=== PATIENT | female | born 1930 | race Caucasian/White ===

== ENCOUNTER → 2017-03-28 | Outpatient (CLI) | payer MEDICARE ==
[2017-03-28 12:46] LABS: INR 0.94; PROTHROMBIN TIME 12.7 SECONDS (12.4-14.5)
[2017-03-28 12:48] LABS: APPEARANCE, URINE CLEAR (CLEAR); BACTERIA, URINE AUTO NEGATIVE (NEGATIVE); BILIRUBIN, URINE AUTO NEGATIVE (NEGATIVE); BLOOD, URINE BLOOD NEGATIVE (NEGATIVE); COLOR, URINE YELLOW (YELLOW); GLUCOSE, URINE (UA) AUTO NEGATIVE (NEGATIVE); KETONE, URINE AUTO NEGATIVE (NEGATIVE); LEUKOCYTE ESTERASE, URINE AUTO NEGATIVE (NEGATIVE); MUCUS, URINE SMALL (NEGATIVE); NITRITE, URINE AUTO NEGATIVE (NEGATIVE); PROTEIN, URINE AUTO NEGATIVE (NEGATIVE); RBC, URINE AUTO 9 /HPF (0-3); SPECIFIC GRAVITY URINE AUTO 1.013 (1.002-1.035); SQUAMOUS EPITHELIAL CELL UR AU 0 /HPF (0-6); UROBILINOGEN, URINE AUTO 0.2 mg/dL (0.0-2.0); WBC, URINE AUTO 1 /HPF (0-3)
[2017-03-28 12:57] LABS: ALBUMIN 3.8 GM/DL (3.2-5.2); ALBUMIN/GLOBULIN RATIO 1.15 (1.00-1.93); ALKALINE PHOSPHATASE 75 U/L (45-117); ALT/SGPT 20 U/L (12-78); ANION GAP 8 MEQ/L (8-16); AST/SGOT 23 U/L (7-37); BILIRUBIN,TOTAL 0.3 MG/DL (0.2-1.0); BLOOD UREA NITROGEN 14 MG/DL (7-18); CALCIUM LEVEL 9.2 MG/DL (8.8-10.2); CARBON DIOXIDE LEVEL 31 MEQ/L (21-32); CHLORIDE LEVEL 90 MEQ/L (98-107); CREATININE FOR GFR 0.67 MG/DL (0.55-1.30); GLOMERULAR FILTRATION RATE > 60.0 (>32); GLUCOSE, FASTING 100 MG/DL (70-100); POTASSIUM SERUM 3.6 MEQ/L (3.5-5.1); SODIUM LEVEL 129 MEQ/L (136-145); TOTAL PROTEIN 7.1 GM/DL (6.4-8.2)
[2017-03-28 13:03] LABS: ERYTHROCYTE SEDIMENTATION RATE 14 mm/hr (0-42)
[2017-03-28 13:05] LABS: HEMATOCRIT 33.9 % (36.0-47.0); HEMOGLOBIN 11.1 g/dl (12.0-16.0); MEAN CORPUSCULAR HEMOGLOBIN 24.9 pg (27.0-33.0); MEAN CORPUSCULAR HGB CONC 32.7 g/dl (32.0-36.5); PLATELET COUNT, AUTOMATED 297 10^3/uL (150-450); RED BLOOD COUNT 4.46 10^6/uL (4.00-5.40); RED CELL DISTRIBUTION WIDTH 14.6 % (11.5-14.5); WHITE BLOOD COUNT 8.2 10^3/uL (4.0-10.0)
== END ==
LOC: M ADMPAT 10:30
DX: Z01.818 Encounter for other preprocedural examination (principal); M17.12 Unilateral primary osteoarthritis, left knee; Z79.899 Other long term (current) drug therapy; Z79.01 Long term (current) use of anticoagulants
CPT/HCPCS: 80053

== ENCOUNTER 2017-04-07 07:42 | Inpatient (IN) | payer MEDICARE ==
[2017-04-07] MEDS ORDERED: LIDOCAINE 1% MDV 20ML VIAL SQ (08:00)
[2017-04-07] MEDS ORDERED: MIDAZOLAM INJ 2 MG/2 ML VIAL (J2250) As Ordered ×2 (08:33→08:46)
[2017-04-07] MEDS ORDERED: fentaNYL 100 MCG/2 ML INJECTION (J3010) As Ordered ×2 (08:33→08:45)
[2017-04-07] MEDS: LR 1,000 ML IV ×3 (08:38→14:38)
[2017-04-07] MEDS ORDERED: PROPOFOL 200 MG/20 ML VIAL As Ordered (08:47)
[2017-04-07] MEDS ORDERED: LIDOCAINE 2% INJ 100 MG/5 ML SDV (FOR ANES.) As Ordered (08:47)
[2017-04-07] MEDS: MIDAZOLAM INJ 2 MG/2 ML VIAL (J2250) IV (08:55)
[2017-04-07] MEDS: fentaNYL 100 MCG/2 ML INJECTION (J3010) IV (08:55)
[2017-04-07] MEDS: FOLIC ACID 1 MG TAB PO (09:00)
[2017-04-07] MEDS: FERROUS SULFATE 325MG TAB PO (09:00)
[2017-04-07] MEDS: ceFAZolin 1GM INJ (J0690 PER 500MG) As Ordered (09:47)
[2017-04-07] MEDS: CLINDAMYCIN 600 MG in APPROPRIATE DILUENT 1 EA IV ×2 (10:12→17:04)
[2017-04-07] MEDS: CLINDAMYCIN INJ 900MG/6ML VIAL As Ordered (10:23)
[2017-04-07] MEDS: TRANEXAMIC ACID 100 MG/ML 10ML VIAL As Ordered (10:41)
[2017-04-07] MEDS: EPINEPHrine INJ 1 MG/ML 1ML AMP As Ordered (10:41)
[2017-04-07] MEDS: BUPIVACAINE LIPOSOME/PF 1.3% 20 ML VIAL (13.3MG/ML)(EXPAREL) As Ordered (11:01)
[2017-04-07] MEDS ORDERED: MORPHINE 1MG/ML IN 0.9% NACL 100ML IV BAG As Ordered ×2 (11:57→12:10)
[2017-04-07] MEDS ORDERED: diphenhydrAMINE INJ 50MG/ML VIAL (J1200) IV (12:45)
[2017-04-07] MEDS ORDERED: fentaNYL 100 MCG/2 ML INJECTION (J3010) IV (12:45)
[2017-04-07] MEDS ORDERED: ONDANSETRON 4MG/2ML VIAL (J2405) IV ×2 (12:45)
[2017-04-07] MEDS ORDERED: NALOXONE INJ 0.4 MG/1 ML VIAL (J2310) IV (12:45)
[2017-04-07] MEDS ORDERED: FLEET ENEMA PR (12:45)
[2017-04-07] MEDS ORDERED: NALBUPHINE HCL 10 MG/ML AMP (J2300) IV (12:45)
[2017-04-07] MEDS ORDERED: PERCOCET 5MG/325MG TAB PO (12:45)
[2017-04-07] MEDS ORDERED: EPIDURAL/PCA KEYS XX (12:45)
[2017-04-07] MEDS ORDERED: ACETAMINOPHEN TAB 650MG DOSE (2X325MG) PO (12:45)
[2017-04-07] MEDS ORDERED: MORPHINE 1MG/ML IN 0.9% NACL 100ML IV BAG IV (12:45)
[2017-04-07] MEDS: WARFARIN SOD 5 MG TAB PO (17:04)
[2017-04-08] MEDS: CLINDAMYCIN 600 MG in APPROPRIATE DILUENT 1 EA IV (02:35)
[2017-04-08] MEDS: LR 1,000 ML IV (02:35)
[2017-04-08] MEDS: LEVOTHYROXINE 50MCG TABLET (0.05MG) PO (05:19)
[2017-04-08 06:28] LABS: HEMOGLOBIN 8.4 g/dl (12.0-16.0); MEAN CORPUSCULAR HEMOGLOBIN 24.3 pg (27.0-33.0); MEAN CORPUSCULAR HGB CONC 32.3 g/dl (32.0-36.5); MEAN CORPUSCULAR VOLUME 75.1 fl (80.0-96.0); PLATELET COUNT, AUTOMATED 271 10^3/uL (150-450); RED BLOOD COUNT 3.46 10^6/uL (4.00-5.40); RED CELL DISTRIBUTION WIDTH 14.4 % (11.5-14.5); WHITE BLOOD COUNT 10.4 10^3/uL (4.0-10.0)
[2017-04-08 06:41] LABS: INR 1.54; PROTHROMBIN TIME 18.9 SECONDS (12.4-14.5)
[2017-04-08 06:43] LABS: ANION GAP 8 MEQ/L (8-16); BLOOD UREA NITROGEN 13 MG/DL (7-18); CALCIUM LEVEL 7.9 MG/DL (8.8-10.2); CARBON DIOXIDE LEVEL 30 MEQ/L (21-32); CHLORIDE LEVEL 93 MEQ/L (98-107); CREATININE FOR GFR 0.69 MG/DL (0.55-1.30); GLOMERULAR FILTRATION RATE > 60.0 (>32); GLUCOSE, FASTING 134 MG/DL (70-100); MAGNESIUM LEVEL 1.4 MG/DL (1.8-2.4); SODIUM LEVEL 131 MEQ/L (136-145)
[2017-04-08] MEDS ORDERED: ONDANSETRON 4 MG TAB (S0181) PO (07:00)
[2017-04-08] MEDS: MOM 30ML SUSPENSION UDC PO (08:57)
[2017-04-08] MEDS: SENOKOT S TAB PO ×2 (08:57→19:56)
[2017-04-08] MEDS: FERROUS SULFATE 325MG TAB PO (08:57)
[2017-04-08] MEDS: SERTRALINE HCL 25 MG TABLET PO (08:57)
[2017-04-08] MEDS: MIRALAX *UNIT DOSE* 17GM PACKET PO (08:57)
[2017-04-08] MEDS: PANTOPRAZOLE 40MG TAB (PROTONIX) PO (08:57)
[2017-04-08] MEDS: FOLIC ACID 1 MG TAB PO (08:57)
[2017-04-08] MEDS: PERCOCET 5MG/325MG TAB PO ×2 (08:58→17:20)
[2017-04-08] MEDS ORDERED: WARFARIN SOD 5 MG TAB PO (17:00)
[2017-04-08] MEDS: WARFARIN SOD 2.5 MG TAB PO (17:19)
[2017-04-09] MEDS: PERCOCET 5MG/325MG TAB PO ×5 (00:55→20:48)
[2017-04-09] MEDS: LEVOTHYROXINE 50MCG TABLET (0.05MG) PO (05:50)
[2017-04-09 06:29] LABS: HEMOGLOBIN 8.2 g/dl (12.0-16.0); MEAN CORPUSCULAR HEMOGLOBIN 24.9 pg (27.0-33.0); MEAN CORPUSCULAR HGB CONC 32.8 g/dl (32.0-36.5); PLATELET COUNT, AUTOMATED 247 10^3/uL (150-450); RED BLOOD COUNT 3.29 10^6/uL (4.00-5.40); RED CELL DISTRIBUTION WIDTH 14.6 % (11.5-14.5); WHITE BLOOD COUNT 9.5 10^3/uL (4.0-10.0)
[2017-04-09 06:36] LABS: INR 2.13; PROTHROMBIN TIME 24.6 SECONDS (12.4-14.5)
[2017-04-09 06:50] LABS: ANION GAP 6 MEQ/L (8-16); BLOOD UREA NITROGEN 13 MG/DL (7-18); CALCIUM LEVEL 7.9 MG/DL (8.8-10.2); CARBON DIOXIDE LEVEL 31 MEQ/L (21-32); CHLORIDE LEVEL 93 MEQ/L (98-107); CREATININE FOR GFR 0.53 MG/DL (0.55-1.30); GLOMERULAR FILTRATION RATE > 60.0 (>32); GLUCOSE, FASTING 111 MG/DL (70-100); MAGNESIUM LEVEL 1.6 MG/DL (1.8-2.4); POTASSIUM SERUM 3.2 MEQ/L (3.5-5.1); SODIUM LEVEL 130 MEQ/L (136-145)
[2017-04-09] MEDS: FERROUS SULFATE 325MG TAB PO (08:19)
[2017-04-09] MEDS: SENOKOT S TAB PO ×2 (08:19→20:48)
[2017-04-09] MEDS: SERTRALINE HCL 25 MG TABLET PO (08:19)
[2017-04-09] MEDS: MIRALAX *UNIT DOSE* 17GM PACKET PO (08:19)
[2017-04-09] MEDS: MOM 30ML SUSPENSION UDC PO (08:19)
[2017-04-09] MEDS: PANTOPRAZOLE 40MG TAB (PROTONIX) PO (08:19)
[2017-04-09] MEDS: FOLIC ACID 1 MG TAB PO (08:19)
[2017-04-09] MEDS: MORPHINE 4 MG/ML 1ML VIAL (J2270) IV (08:20)
[2017-04-10] MEDS: PERCOCET 5MG/325MG TAB PO ×2 (00:47→12:10)
[2017-04-10] MEDS: LEVOTHYROXINE 50MCG TABLET (0.05MG) PO (05:45)
[2017-04-10 06:55] LABS: INR 2.25; PROTHROMBIN TIME 25.7 SECONDS (12.4-14.5)
[2017-04-10 06:56] LABS: ANION GAP 6 MEQ/L (8-16); BLOOD UREA NITROGEN 9 MG/DL (7-18); CALCIUM LEVEL 7.8 MG/DL (8.8-10.2); CARBON DIOXIDE LEVEL 32 MEQ/L (21-32); CHLORIDE LEVEL 93 MEQ/L (98-107); CREATININE FOR GFR 0.54 MG/DL (0.55-1.30); GLOMERULAR FILTRATION RATE > 60.0 (>32); GLUCOSE, FASTING 109 MG/DL (70-100); MAGNESIUM LEVEL 1.8 MG/DL (1.8-2.4); POTASSIUM SERUM 3.2 MEQ/L (3.5-5.1); SODIUM LEVEL 131 MEQ/L (136-145)
[2017-04-10] MEDS: MOM 30ML SUSPENSION UDC PO (09:43)
[2017-04-10] MEDS: MIRALAX *UNIT DOSE* 17GM PACKET PO (09:43)
[2017-04-10] MEDS: SERTRALINE HCL 25 MG TABLET PO (09:43)
[2017-04-10] MEDS: PANTOPRAZOLE 40MG TAB (PROTONIX) PO (09:44)
[2017-04-10] MEDS: FERROUS SULFATE 325MG TAB PO (09:44)
[2017-04-10] MEDS: FOLIC ACID 1 MG TAB PO (09:44)
[2017-04-10] MEDS: SENOKOT S TAB PO (09:44)
[2017-04-10] MEDS: POTASSIUM CHLORIDE 10 MEQ SR TABLET PO (13:32)
== END 2017-04-10 13:40 | DRG 470 ==
LOC: M OR 07:42 → M MS5PR 13:15
PROC: 0SRD0J9 Replacement of Left Knee Joint with Synthetic Substitute, Cemented, Open Approach (ICD-10-PCS; principal; 2017-04-07 09:30)
DX: M17.12 Unilateral primary osteoarthritis, left knee (principal); E72.11 Homocystinuria; Z79.899 Other long term (current) drug therapy; Z88.0 Allergy status to penicillin; Z88.8 Allergy status to other drugs, medicaments and biological substances; K21.9 Gastro-esophageal reflux disease without esophagitis; E03.9 Hypothyroidism, unspecified; I10 Essential (primary) hypertension; D50.9 Iron deficiency anemia, unspecified; M48.061 Spinal stenosis, lumbar region without neurogenic claudication

== ENCOUNTER 2017-04-10 13:54 | Inpatient (IN) | payer MEDICARE ==
[~2017-04-10 13:54] MED LIST: BISACODYL 10 MG SUPP PR; BISACODYL 5 MG TAB PO; FLEET ENEMA PR; LACTULOSE 20 GM/30 ML SYRUP UD PO; MOM 30ML SUSPENSION UDC PO; ONDANSETRON 4 MG TAB (S0181) PO; ONDANSETRON 4MG/2ML VIAL (J2405) IM; diphenhydrAMINE 25 MG CAP PO
[2017-04-10] MEDS: SENNA 8.6 MG TAB (SENOKOT) PO (20:31)
[2017-04-10] MEDS: DOCUSATE SODIUM 100 MG CAP PO (20:31)
[2017-04-10] MEDS: ACETAMINOPHEN TAB 650MG DOSE (2X325MG) PO (20:31)
[2017-04-10] MEDS: PERCOCET 5MG/325MG TAB PO (22:17)
[2017-04-11] MEDS: LEVOTHYROXINE 50MCG TABLET (0.05MG) PO (05:35)
[2017-04-11 06:53] LABS: BASO # 0.1 10^3/uL (0.0-0.2); BASO % 0.7 % (0.0-1.0); EOS # 0.2 10^3/uL (0.0-0.50); EOS % 2.5 % (0.0-3.0); HEMATOCRIT 23.6 % (36.0-47.0); HEMOGLOBIN 7.7 g/dl (12.0-16.0); IMMATURE GRANULOCYTE % 0.4 % (0-3.0); LYMPH # 1.4 10^3/uL (1.5-4.5); LYMPH % 20.7 % (24.0-44.0); MEAN CORPUSCULAR HEMOGLOBIN 25.2 pg (27.0-33.0); MEAN CORPUSCULAR HGB CONC 32.6 g/dl (32.0-36.5); MEAN CORPUSCULAR VOLUME 77.1 fl (80.0-96.0); MONO # 0.9 10^3/uL (0.0-0.8); MONO % 12.5 % (0.0-5.0); NEUTROPHILS # 4.4 10^3/uL (1.8-7.7); NEUTROPHILS % 63.2 % (36.0-66.0); PLATELET COUNT, AUTOMATED 238 10^3/uL (150-450); RED BLOOD COUNT 3.06 10^6/uL (4.00-5.40); RED CELL DISTRIBUTION WIDTH 14.4 % (11.5-14.5); WHITE BLOOD COUNT 6.9 10^3/uL (4.0-10.0)
[2017-04-11 06:59] LABS: INR 1.94; PROTHROMBIN TIME 22.8 SECONDS (12.4-14.5)
[2017-04-11 07:16] LABS: ALBUMIN 2.5 GM/DL (3.2-5.2); ALBUMIN/GLOBULIN RATIO 0.78 (1.00-1.93); ALKALINE PHOSPHATASE 67 U/L (45-117); ALT/SGPT 20 U/L (12-78); ANION GAP 6 MEQ/L (8-16); AST/SGOT 21 U/L (7-37); BILIRUBIN,TOTAL 0.8 MG/DL (0.2-1.0); BLOOD UREA NITROGEN 9 MG/DL (7-18); CALCIUM LEVEL 8.1 MG/DL (8.8-10.2); CARBON DIOXIDE LEVEL 33 MEQ/L (21-32); CHLORIDE LEVEL 94 MEQ/L (98-107); CREATININE FOR GFR 0.51 MG/DL (0.55-1.30); GLOMERULAR FILTRATION RATE > 60.0 (>32); GLUCOSE, FASTING 97 MG/DL (70-100); POTASSIUM SERUM 3.5 MEQ/L (3.5-5.1); SODIUM LEVEL 133 MEQ/L (136-145); TOTAL PROTEIN 5.7 GM/DL (6.4-8.2)
[2017-04-11] MEDS: DOCUSATE SODIUM 100 MG CAP PO ×2 (08:45→21:00)
[2017-04-11] MEDS: MIRALAX *UNIT DOSE* 17GM PACKET PO (08:46)
[2017-04-11] MEDS: SERTRALINE HCL 25 MG TABLET PO (08:46)
[2017-04-11] MEDS: FERROUS GLUCONATE 324 MG TAB PO (08:46)
[2017-04-11] MEDS: PANTOPRAZOLE 40MG TAB (PROTONIX) PO (08:46)
[2017-04-11] MEDS: FOLIC ACID 1 MG TAB PO (08:46)
[2017-04-11] MEDS: NS 1,000 ML IV (09:32)
[2017-04-11] MEDS: PERCOCET 5MG/325MG TAB PO (09:42)
[2017-04-11 12:17] LABS: KETONE, URINE AUTO RFX NEGATIVE (NEGATIVE); LEUKOCYTE ESTERASE UR AUTO RFX NEGATIVE (NEGATIVE); MUCUS, URINE RFX SMALL (NEGATIVE); NITRITE, URINE AUTO RFX NEGATIVE (NEGATIVE); RBC, URINE AUTO RFX 6 /HPF (0-3); SPECIFIC GRAVITY UR AUTO RFX 1.006 (1.002-1.035); SQUAM EPITHELIAL CELL UR AURFX 0 /HPF (0-6); WBC, URINE AUTO RFX 2 /HPF (0-3)
[2017-04-11 14:49] LABS: IMMEDIATE SPIN CROSSMATCH 1 1
[2017-04-11] MEDS: WARFARIN SOD 2.5 MG TAB PO (17:58)
[2017-04-11] MEDS: SENNA 8.6 MG TAB (SENOKOT) PO (21:00)
[2017-04-11] MEDS: diphenhydrAMINE 25 MG CAP PO (21:58)
[2017-04-12] MEDS: PERCOCET 5MG/325MG TAB PO ×2 (02:08→08:50)
[2017-04-12] MEDS: LEVOTHYROXINE 50MCG TABLET (0.05MG) PO (06:09)
[2017-04-12 06:46] LABS: BASO # 0.1 10^3/uL (0.0-0.2); BASO % 0.8 % (0.0-1.0); EOS # 0.2 10^3/uL (0.0-0.50); EOS % 3.4 % (0.0-3.0); IMMATURE GRANULOCYTE % 0.8 % (0-3.0); LYMPH # 1.6 10^3/uL (1.5-4.5); LYMPH % 22.1 % (24.0-44.0); MEAN CORPUSCULAR HEMOGLOBIN 25.8 pg (27.0-33.0); MEAN CORPUSCULAR HGB CONC 32.7 g/dl (32.0-36.5); MEAN CORPUSCULAR VOLUME 78.9 fl (80.0-96.0); MONO # 0.9 10^3/uL (0.0-0.8); MONO % 12.4 % (0.0-5.0); NEUTROPHILS # 4.3 10^3/uL (1.8-7.7); NEUTROPHILS % 60.5 % (36.0-66.0); PLATELET COUNT, AUTOMATED 280 10^3/uL (150-450); RED CELL DISTRIBUTION WIDTH 14.8 % (11.5-14.5); WHITE BLOOD COUNT 7.2 10^3/uL (4.0-10.0)
[2017-04-12 06:47] LABS: HEMOGLOBIN 9.8 g/dl (12.0-16.0); INR 1.82; PROTHROMBIN TIME 21.6 SECONDS (12.4-14.5)
[2017-04-12 06:55] LABS: ANION GAP 7 MEQ/L (8-16); BLOOD UREA NITROGEN 9 MG/DL (7-18); CALCIUM LEVEL 8.5 MG/DL (8.8-10.2); CARBON DIOXIDE LEVEL 32 MEQ/L (21-32); CHLORIDE LEVEL 94 MEQ/L (98-107); CREATININE FOR GFR 0.56 MG/DL (0.55-1.30); GLOMERULAR FILTRATION RATE > 60.0 (>32); GLUCOSE, FASTING 95 MG/DL (70-100); POTASSIUM SERUM 3.2 MEQ/L (3.5-5.1); SODIUM LEVEL 133 MEQ/L (136-145)
[2017-04-12] MEDS: FERROUS GLUCONATE 324 MG TAB PO (08:51)
[2017-04-12] MEDS: PANTOPRAZOLE 40MG TAB (PROTONIX) PO (08:52)
[2017-04-12] MEDS: FOLIC ACID 1 MG TAB PO (08:52)
[2017-04-12] MEDS: MIRALAX *UNIT DOSE* 17GM PACKET PO (08:53)
[2017-04-12] MEDS: DOCUSATE SODIUM 100 MG CAP PO ×2 (08:54→21:00)
[2017-04-12] MEDS: NS 1,000 ML IV (08:54)
[2017-04-12] MEDS: SERTRALINE HCL 25 MG TABLET PO ×2 (09:21→21:53)
[2017-04-12] MEDS: SIMETHICONE 80 MG CHEW TAB PO (10:42)
[2017-04-12] MEDS: CALCIUM/VITAMIN D 500 MG TAB PO ×2 (10:42→21:53)
[2017-04-12] MEDS: WARFARIN SOD 4 MG TAB PO (17:24)
[2017-04-12] MEDS: SENNA 8.6 MG TAB (SENOKOT) PO (21:00)
[2017-04-12] MEDS: ACETAMINOPHEN TAB 650MG DOSE (2X325MG) PO (21:55)
[2017-04-13] MEDS: LEVOTHYROXINE 50MCG TABLET (0.05MG) PO (05:34)
[2017-04-13 06:49] LABS: INR 2.17
[2017-04-13] MEDS: DOCUSATE SODIUM 100 MG CAP PO ×3 (09:00→21:00)
[2017-04-13] MEDS: CALCIUM/VITAMIN D 500 MG TAB PO ×2 (09:12→21:53)
[2017-04-13] MEDS: PANTOPRAZOLE 40MG TAB (PROTONIX) PO (09:12)
[2017-04-13] MEDS: FOLIC ACID 1 MG TAB PO (09:12)
[2017-04-13] MEDS: FERROUS GLUCONATE 324 MG TAB PO (09:12)
[2017-04-13] MEDS: PERCOCET 5MG/325MG TAB PO (09:21)
[2017-04-13] MEDS: NS 1,000 ML IV (09:22)
[2017-04-13] MEDS: SENNA 8.6 MG TAB (SENOKOT) PO (21:00)
[2017-04-13] MEDS: SERTRALINE HCL 25 MG TABLET PO (21:53)
[2017-04-13] MEDS: ACETAMINOPHEN TAB 650MG DOSE (2X325MG) PO (21:54)
[2017-04-14] MEDS: LEVOTHYROXINE 50MCG TABLET (0.05MG) PO (05:49)
[2017-04-14 07:47] LABS: INR 2.27; PROTHROMBIN TIME 25.9 SECONDS (12.4-14.5)
[2017-04-14] MEDS: FERROUS GLUCONATE 324 MG TAB PO (08:10)
[2017-04-14] MEDS: PANTOPRAZOLE 40MG TAB (PROTONIX) PO (08:10)
[2017-04-14] MEDS: FOLIC ACID 1 MG TAB PO (08:10)
[2017-04-14] MEDS: CALCIUM/VITAMIN D 500 MG TAB PO ×2 (08:10→21:41)
[2017-04-14] MEDS: DOCUSATE SODIUM 100 MG CAP PO ×2 (08:11→21:41)
[2017-04-14] MEDS: PERCOCET 5MG/325MG TAB PO ×3 (09:21→21:43)
[2017-04-14] MEDS: SENNA 8.6 MG TAB (SENOKOT) PO (21:41)
[2017-04-14] MEDS: SERTRALINE HCL 25 MG TABLET PO (21:41)
[2017-04-15] MEDS: LEVOTHYROXINE 50MCG TABLET (0.05MG) PO (05:17)
[2017-04-15 06:23] LABS: INR 2.19; PROTHROMBIN TIME 25.1 SECONDS (12.4-14.5)
[2017-04-15] MEDS: FERROUS GLUCONATE 324 MG TAB PO (09:14)
[2017-04-15] MEDS: PANTOPRAZOLE 40MG TAB (PROTONIX) PO (09:14)
[2017-04-15] MEDS: ACETAMINOPHEN TAB 650MG DOSE (2X325MG) PO ×2 (09:14→21:09)
[2017-04-15] MEDS: CALCIUM/VITAMIN D 500 MG TAB PO ×2 (09:14→21:08)
[2017-04-15] MEDS: FOLIC ACID 1 MG TAB PO (09:14)
[2017-04-15] MEDS: DOCUSATE SODIUM 100 MG CAP PO ×2 (09:14→21:08)
[2017-04-15] MEDS: PERCOCET 5MG/325MG TAB PO (14:26)
[2017-04-15] MEDS: SERTRALINE HCL 25 MG TABLET PO (21:08)
[2017-04-15] MEDS: SENNA 8.6 MG TAB (SENOKOT) PO (21:08)
[2017-04-16] MEDS: LEVOTHYROXINE 50MCG TABLET (0.05MG) PO (06:21)
[2017-04-16 06:32] LABS: INR 2.26; PROTHROMBIN TIME 25.8 SECONDS (12.4-14.5)
[2017-04-16] MEDS: FERROUS GLUCONATE 324 MG TAB PO (08:54)
[2017-04-16] MEDS: CALCIUM/VITAMIN D 500 MG TAB PO ×2 (08:54→21:51)
[2017-04-16] MEDS: DOCUSATE SODIUM 100 MG CAP PO ×2 (08:54→21:00)
[2017-04-16] MEDS: PANTOPRAZOLE 40MG TAB (PROTONIX) PO (08:54)
[2017-04-16] MEDS: FOLIC ACID 1 MG TAB PO (08:54)
[2017-04-16] MEDS: ACETAMINOPHEN TAB 650MG DOSE (2X325MG) PO (10:51)
[2017-04-16] MEDS: PERCOCET 5MG/325MG TAB PO ×2 (16:13→21:52)
[2017-04-16] MEDS: SENNA 8.6 MG TAB (SENOKOT) PO (21:00)
[2017-04-16] MEDS: SERTRALINE HCL 25 MG TABLET PO (21:51)
[2017-04-17] MEDS: LEVOTHYROXINE 50MCG TABLET (0.05MG) PO (06:21)
[2017-04-17 07:02] LABS: BASO # 0.1 10^3/uL (0.0-0.2); EOS # 0.2 10^3/uL (0.0-0.50); EOS % 2.8 % (0.0-3.0); HEMATOCRIT 27.8 % (36.0-47.0); IMMATURE GRANULOCYTE % 0.9 % (0-3.0); LYMPH # 1.4 10^3/uL (1.5-4.5); MEAN CORPUSCULAR HEMOGLOBIN 25.8 pg (27.0-33.0); MEAN CORPUSCULAR HGB CONC 32.4 g/dl (32.0-36.5); MEAN CORPUSCULAR VOLUME 79.7 fl (80.0-96.0); MONO % 14.5 % (0.0-5.0); NEUTROPHILS # 4.2 10^3/uL (1.8-7.7); NEUTROPHILS % 60.8 % (36.0-66.0); PLATELET COUNT, AUTOMATED 309 10^3/uL (150-450); RED BLOOD COUNT 3.49 10^6/uL (4.00-5.40); RED CELL DISTRIBUTION WIDTH 15.3 % (11.5-14.5); WHITE BLOOD COUNT 6.9 10^3/uL (4.0-10.0)
[2017-04-17 07:15] LABS: INR 1.98; PROTHROMBIN TIME 23.1 SECONDS (12.4-14.5)
[2017-04-17 07:17] LABS: ANION GAP 7 MEQ/L (8-16); BLOOD UREA NITROGEN 6 MG/DL (7-18); CALCIUM LEVEL 8.4 MG/DL (8.8-10.2); CARBON DIOXIDE LEVEL 31 MEQ/L (21-32); CHLORIDE LEVEL 100 MEQ/L (98-107); CREATININE FOR GFR 0.46 MG/DL (0.55-1.30); GLOMERULAR FILTRATION RATE > 60.0 (>32); GLUCOSE, FASTING 94 MG/DL (70-100); POTASSIUM SERUM 3.1 MEQ/L (3.5-5.1); SODIUM LEVEL 138 MEQ/L (136-145)
[2017-04-17] MEDS: FERROUS GLUCONATE 324 MG TAB PO (08:34)
[2017-04-17] MEDS: PANTOPRAZOLE 40MG TAB (PROTONIX) PO (08:34)
[2017-04-17] MEDS: FOLIC ACID 1 MG TAB PO (08:34)
[2017-04-17] MEDS: DOCUSATE SODIUM 100 MG CAP PO (08:34)
[2017-04-17] MEDS: CALCIUM/VITAMIN D 500 MG TAB PO (08:34)
[2017-04-17] MEDS: ACETAMINOPHEN TAB 650MG DOSE (2X325MG) PO (10:39)
== END 2017-04-17 14:05 | disposition home health service (06) | DRG 560 ==
LOC: M PM&R 04-14 13:59
DX: Z47.1 Aftercare following joint replacement surgery (principal); D62 Acute posthemorrhagic anemia; Z96.652 Presence of left artificial knee joint; K59.00 Constipation, unspecified; M19.90 Unspecified osteoarthritis, unspecified site; K21.9 Gastro-esophageal reflux disease without esophagitis; I10 Essential (primary) hypertension; Z79.899 Other long term (current) drug therapy; Z88.0 Allergy status to penicillin; Z88.8 Allergy status to other drugs, medicaments and biological substances; F32.9 Major depressive disorder, single episode, unspecified; E03.9 Hypothyroidism, unspecified; R50.9 Fever, unspecified

== ENCOUNTER → 2017-04-20 | Outpatient (REF) | payer MEDICARE ==
[2017-04-20 13:12] LABS: INR 1.83; PROTHROMBIN TIME 21.7 SECONDS (12.4-14.5)
== END ==
LOC: M LABDRAW1 11:50
DX: Z79.01 Long term (current) use of anticoagulants (principal)
CPT/HCPCS: 85610

== ENCOUNTER → 2017-09-07 | Outpatient (CLI) | payer MEDICARE ==
[2017-09-07 11:24] LABS: HEMATOCRIT 31.3 % (36.0-47.0); HEMOGLOBIN 9.9 g/dl (12.0-15.5); MEAN CORPUSCULAR HEMOGLOBIN 23.2 pg (27.0-33.0); MEAN CORPUSCULAR HGB CONC 31.6 g/dl (32.0-36.5); MEAN CORPUSCULAR VOLUME 73.3 fl (80.0-96.0); PLATELET COUNT, AUTOMATED 274 10^3/uL (150-450); RED BLOOD COUNT 4.27 10^6/uL (4.00-5.40); RED CELL DISTRIBUTION WIDTH 14.1 % (11.5-14.5); WHITE BLOOD COUNT 6.4 10^3/uL (4.0-10.0)
[2017-09-07 11:35] LABS: INR 0.99; PROTHROMBIN TIME 13.2 SECONDS (12.1-14.4)
[2017-09-07 11:48] LABS: ALBUMIN 3.4 GM/DL (3.2-5.2); ALKALINE PHOSPHATASE 81 U/L (45-117); ALT/SGPT 21 U/L (12-78); ANION GAP 8 MEQ/L (8-16); AST/SGOT 25 U/L (7-37); BILIRUBIN,TOTAL 0.4 MG/DL (0.2-1.0); BLOOD UREA NITROGEN 13 MG/DL (7-18); CALCIUM LEVEL 8.9 MG/DL (8.8-10.2); CARBON DIOXIDE LEVEL 32 MEQ/L (21-32); CHLORIDE LEVEL 92 MEQ/L (98-107); GLOMERULAR FILTRATION RATE > 60.0 (>32); GLUCOSE, FASTING 88 MG/DL (70-100); POTASSIUM SERUM 3.3 MEQ/L (3.5-5.1); SODIUM LEVEL 132 MEQ/L (136-145); TOTAL PROTEIN 6.8 GM/DL (6.4-8.2)
[2017-09-07 11:49] LABS: ERYTHROCYTE SEDIMENTATION RATE 24 mm/hr (0-42)
== END ==
LOC: M ADMPAT 09:39
DX: Z01.818 Encounter for other preprocedural examination (principal); K21.9 Gastro-esophageal reflux disease without esophagitis; M17.11 Unilateral primary osteoarthritis, right knee; E07.9 Disorder of thyroid, unspecified
CPT/HCPCS: 71046

== ENCOUNTER 2017-09-27 09:24 | Inpatient (IN) | payer MEDICARE ==
[2017-09-25] MEDS: TRANEXAMIC ACID 100 MG/ML 10ML VIAL As Ordered (08:10)
[2017-09-25] MEDS: EPINEPHrine INJ 1 MG/ML 1ML AMP As Ordered (08:11)
[2017-09-25] MEDS: BUPIVACAINE LIPOSOME/PF 1.3% 20 ML VIAL (13.3MG/ML)(EXPAREL) As Ordered (08:12)
[2017-09-27] MEDS ORDERED: LR 1,000 ML IV (09:45)
[2017-09-27] MEDS: CLINDAMYCIN INJ 900MG/6ML VIAL As Ordered ×2 (10:06→12:44)
[2017-09-27] MEDS ORDERED: fentaNYL 100 MCG/2 ML INJECTION (J3010) As Ordered ×2 (11:02→12:29)
[2017-09-27] MEDS ORDERED: MIDAZOLAM INJ 2 MG/2 ML VIAL (J2250) As Ordered ×2 (11:02→12:29)
[2017-09-27] MEDS: MIDAZOLAM INJ 2 MG/2 ML VIAL (J2250) IV (11:24)
[2017-09-27] MEDS: fentaNYL 100 MCG/2 ML INJECTION (J3010) IV (11:25)
[2017-09-27] MEDS: CLINDAMYCIN 900 MG in APPROPRIATE DILUENT 1 EA IV ×2 (12:11→20:20)
[2017-09-27] MEDS ORDERED: PROPOFOL 200 MG/20 ML VIAL As Ordered (12:29)
[2017-09-27] MEDS ORDERED: LIDOCAINE 2% INJ 100 MG/5 ML SDV (FOR ANES.) As Ordered (12:29)
[2017-09-27] MEDS ORDERED: ePHEDrine SULFATE 25 MG/5 ML(5MG/ML) SYRINGE As Ordered (12:56)
[2017-09-27] MEDS ORDERED: LIDOCAINE 1% MDV 20ML VIAL (12:57)
[2017-09-27] MEDS ORDERED: ROPIvacaine 0.5% 30 ML INJECTION (J2795 PER 1MG) (12:57)
[2017-09-27] MEDS ORDERED: EPINEPHrine INJ 1 MG/ML 1ML AMP (12:57)
[2017-09-27] MEDS: TRANEXAMIC ACID 100 MG/ML 10ML VIAL As Ordered (13:19)
[2017-09-27] MEDS: EPINEPHrine INJ 1 MG/ML 1ML AMP As Ordered (13:19)
[2017-09-27] MEDS: BUPIVACAINE LIPOSOME/PF 1.3% 20 ML VIAL (13.3MG/ML)(EXPAREL) As Ordered (13:20)
[2017-09-27] MEDS ORDERED: MORPHINE 1MG/ML IN 0.9% NACL 100ML IV BAG As Ordered (13:30)
[2017-09-27] MEDS ORDERED: PERCOCET 5MG/325MG TAB PO (14:00)
[2017-09-27] MEDS ORDERED: fentaNYL 100 MCG/2 ML INJECTION (J3010) IV (14:00)
[2017-09-27] MEDS ORDERED: FLEET ENEMA PR (14:00)
[2017-09-27] MEDS ORDERED: ACETAMINOPHEN TAB 650MG DOSE (2X325MG) PO (14:00)
[2017-09-27] MEDS ORDERED: diphenhydrAMINE INJ 50MG/ML VIAL (J1200) IV (14:00)
[2017-09-27] MEDS ORDERED: ONDANSETRON 4MG/2ML VIAL (J2405) IV ×2 (14:00)
[2017-09-27] MEDS ORDERED: NALBUPHINE HCL 10 MG/ML AMP (J2300) IV (14:00)
[2017-09-27] MEDS ORDERED: NALOXONE INJ 0.4 MG/1 ML VIAL (J2310) IV (14:00)
[2017-09-27] MEDS ORDERED: METOCLOPRAMIDE INJ 10MG/2ML VIAL (J2765) IV (14:00)
[2017-09-27] MEDS ORDERED: EPIDURAL/PCA KEYS XX (14:00)
[2017-09-27] MEDS: ONDANSETRON 4MG/2ML VIAL (J2405) IV (14:27)
[2017-09-27] MEDS: MORPHINE 1MG/ML IN 0.9% NACL 100ML IV BAG IV (15:11)
[2017-09-27] MEDS: LR 1,000 ML IV ×2 (15:47)
[2017-09-27] MEDS ORDERED: DOCUSATE SODIUM 100 MG CAP PO (16:30)
[2017-09-27] MEDS: FERROUS SULFATE 325MG TAB PO (16:49)
[2017-09-27] MEDS: LORATADINE 10 MG TAB PO (16:49)
[2017-09-27] MEDS: POTASSIUM CHLORIDE 10 MEQ SR TABLET PO (16:50)
[2017-09-27] MEDS: SERTRALINE HCL 25 MG TABLET PO (16:50)
[2017-09-27] MEDS: FOLIC ACID 1 MG TAB PO (16:50)
[2017-09-28] MEDS: LR 1,000 ML IV (03:40)
[2017-09-28] MEDS: CLINDAMYCIN 900 MG in APPROPRIATE DILUENT 1 EA IV (03:40)
[2017-09-28] MEDS: LEVOTHYROXINE 50MCG TABLET (0.05MG) PO (05:18)
[2017-09-28] MEDS ORDERED: ONDANSETRON 4 MG TAB (S0181) PO (06:30)
[2017-09-28] MEDS ORDERED: PERCOCET 5MG/325MG TAB PO (06:30)
[2017-09-28 07:29] LABS: HEMATOCRIT 27.7 % (36.0-47.0); HEMOGLOBIN 8.6 g/dl (12.0-15.5); MEAN CORPUSCULAR HEMOGLOBIN 23.4 pg (27.0-33.0); MEAN CORPUSCULAR VOLUME 75.3 fl (80.0-96.0); PLATELET COUNT, AUTOMATED 220 10^3/uL (150-450); RED BLOOD COUNT 3.68 10^6/uL (4.00-5.40); RED CELL DISTRIBUTION WIDTH 14.7 % (11.5-14.5); WHITE BLOOD COUNT 8.5 10^3/uL (4.0-10.0)
[2017-09-28 07:50] LABS: ALBUMIN/GLOBULIN RATIO 0.83 (1.00-1.93); ALKALINE PHOSPHATASE 60 U/L (45-117); ALT/SGPT 18 U/L (12-78); ANION GAP 8 MEQ/L (8-16); AST/SGOT 20 U/L (7-37); BILIRUBIN,TOTAL 0.6 MG/DL (0.2-1.0); BLOOD UREA NITROGEN 15 MG/DL (7-18); CARBON DIOXIDE LEVEL 31 MEQ/L (21-32); CHLORIDE LEVEL 96 MEQ/L (98-107); CREATININE FOR GFR 0.82 MG/DL (0.55-1.30); FERRITIN 44 NG/ML (8-252); GLOMERULAR FILTRATION RATE > 60.0 (>32); GLUCOSE, FASTING 118 MG/DL (70-100); IRON (FE) 15 UG/DL (50-170); PERCENT SATURATION 5.3 % (13.2-45.0); POTASSIUM SERUM 3.2 MEQ/L (3.5-5.1); SODIUM LEVEL 135 MEQ/L (136-145); TOTAL IRON BINDING CAPACITY 282 UG/DL (250-450); TOTAL PROTEIN 6.6 GM/DL (6.4-8.2)
[2017-09-28] MEDS: FOLIC ACID 1 MG TAB PO (10:06)
[2017-09-28] MEDS: POTASSIUM CHLORIDE 10 MEQ SR TABLET PO ×2 (10:06→12:56)
[2017-09-28] MEDS: MIRALAX *UNIT DOSE* 17GM PACKET PO (10:06)
[2017-09-28] MEDS: DOCUSATE SODIUM 100 MG CAP PO (10:06)
[2017-09-28] MEDS: SENOKOT S TAB PO (10:06)
[2017-09-28] MEDS: MOM 30ML SUSPENSION UDC PO (10:06)
[2017-09-28] MEDS: FERROUS SULFATE 325MG TAB PO (10:06)
[2017-09-28] MEDS: LORATADINE 10 MG TAB PO (10:07)
[2017-09-28] MEDS: PANTOPRAZOLE 40MG TAB (PROTONIX) PO (10:07)
[2017-09-28] MEDS: SERTRALINE HCL 25 MG TABLET PO (10:07)
[2017-09-28] MEDS: RIVAROXABAN 10 MG TAB (XARELTO) PO (10:07)
[2017-09-28] MEDS: PERCOCET 5MG/325MG TAB PO (10:11)
[2017-09-28 11:50] LABS: FOLATE > 24.0 NG/ML (>5.4); VITAMIN B12 LEVEL 499 PG/ML (247-911)
== END 2017-09-28 13:30 | DRG 470 ==
LOC: M OR 09:24 → M MS5PR 15:00
PROC: 0SRC0J9 Replacement of Right Knee Joint with Synthetic Substitute, Cemented, Open Approach (ICD-10-PCS; principal; 2017-09-27 12:00)
DX: M17.11 Unilateral primary osteoarthritis, right knee (principal); L10.0 Pemphigus vulgaris; E72.11 Homocystinuria; I73.9 Peripheral vascular disease, unspecified; D50.9 Iron deficiency anemia, unspecified; K21.9 Gastro-esophageal reflux disease without esophagitis; E87.6 Hypokalemia; J30.9 Allergic rhinitis, unspecified; M48.061 Spinal stenosis, lumbar region without neurogenic claudication; E03.9 Hypothyroidism, unspecified; I10 Essential (primary) hypertension; M81.0 Age-related osteoporosis without current pathological fracture; Z88.0 Allergy status to penicillin; Z88.1 Allergy status to other antibiotic agents; Z88.5 Allergy status to narcotic agent; Z88.8 Allergy status to other drugs, medicaments and biological substances; Z79.899 Other long term (current) drug therapy; Z98.41 Cataract extraction status, right eye; Z98.42 Cataract extraction status, left eye; Z90.710 Acquired absence of both cervix and uterus; Z90.722 Acquired absence of ovaries, bilateral

== ENCOUNTER 2017-09-28 13:35 | Inpatient (IN) | payer MEDICARE ==
[~2017-09-28 13:35] MED LIST changes: -LACTULOSE 20 GM/30 ML SYRUP UD PO; +MAALOX 30 ML SUSP *UDC PO; -MOM 30ML SUSPENSION UDC PO; +NORCO, ANEXSIA 5/325MG TABLET (HYDROcodone/ACETAMINOPHEN) PO; +ONDANSETRON 4 MG ORAL DISINTEGRATING TAB (Q0162 PER 1MG) PO; -ONDANSETRON 4 MG TAB (S0181) PO; +PERCOCET 5MG/325MG TAB PO; +SIMETHICONE 80 MG CHEW TAB PO; -diphenhydrAMINE 25 MG CAP PO
[2017-09-28] MEDS: PERCOCET 5MG/325MG TAB PO ×2 (14:30→20:03)
[2017-09-28] MEDS: SENNA 8.6 MG TAB (SENOKOT) PO (20:02)
[2017-09-28] MEDS: DOCUSATE SODIUM 100 MG CAP PO (20:02)
[2017-09-29] MEDS: PERCOCET 5MG/325MG TAB PO ×4 (00:10→20:27)
[2017-09-29] MEDS: LEVOTHYROXINE 50MCG TABLET (0.05MG) PO (05:59)
[2017-09-29 08:02] LABS: BASO % 0.4 % (0.0-1.0); EOS # 0.1 10^3/uL (0.0-0.50); EOS % 0.8 % (0.0-3.0); HEMATOCRIT 24.1 % (36.0-47.0); HEMOGLOBIN 7.6 g/dl (12.0-15.5); IMMATURE GRANULOCYTE % 0.5 % (0-3.0); LYMPH # 1.3 10^3/uL (1.5-4.5); MEAN CORPUSCULAR HEMOGLOBIN 23.4 pg (27.0-33.0); MEAN CORPUSCULAR HGB CONC 31.5 g/dl (32.0-36.5); MEAN CORPUSCULAR VOLUME 74.2 fl (80.0-96.0); MONO # 1.2 10^3/uL (0.0-0.8); NEUTROPHILS # 5.9 10^3/uL (1.8-7.7); NEUTROPHILS % 69.3 % (36.0-66.0); PLATELET COUNT, AUTOMATED 202 10^3/uL (150-450); RED BLOOD COUNT 3.25 10^6/uL (4.00-5.40); RED CELL DISTRIBUTION WIDTH 14.8 % (11.5-14.5); WHITE BLOOD COUNT 8.6 10^3/uL (4.0-10.0)
[2017-09-29 08:20] LABS: ALBUMIN 2.7 GM/DL (3.2-5.2); ALBUMIN/GLOBULIN RATIO 0.75 (1.00-1.93); ALKALINE PHOSPHATASE 57 U/L (45-117); ALT/SGPT 17 U/L (12-78); ANION GAP 6 MEQ/L (8-16); AST/SGOT 21 U/L (7-37); BILIRUBIN,TOTAL 0.5 MG/DL (0.2-1.0); BLOOD UREA NITROGEN 16 MG/DL (7-18); CALCIUM LEVEL 8.1 MG/DL (8.8-10.2); CARBON DIOXIDE LEVEL 31 MEQ/L (21-32); CHLORIDE LEVEL 98 MEQ/L (98-107); CREATININE FOR GFR 0.67 MG/DL (0.55-1.30); GLOMERULAR FILTRATION RATE > 60.0 (>32); GLUCOSE, FASTING 125 MG/DL (70-100); POTASSIUM SERUM 3.8 MEQ/L (3.5-5.1); SODIUM LEVEL 135 MEQ/L (136-145); TOTAL PROTEIN 6.3 GM/DL (6.4-8.2)
[2017-09-29] MEDS: SERTRALINE HCL 25 MG TABLET PO (08:57)
[2017-09-29] MEDS: MOM 30ML SUSPENSION UDC PO (08:57)
[2017-09-29] MEDS: MIRALAX *UNIT DOSE* 17GM PACKET PO (08:57)
[2017-09-29] MEDS: DOCUSATE SODIUM 100 MG CAP PO ×2 (08:57→20:27)
[2017-09-29] MEDS: FERROUS SULFATE 325MG TAB PO (08:57)
[2017-09-29] MEDS: POTASSIUM CHLORIDE 10 MEQ SR TABLET PO (08:57)
[2017-09-29] MEDS: LORATADINE 10 MG TAB PO (08:57)
[2017-09-29] MEDS: PANTOPRAZOLE 40MG TAB (PROTONIX) PO (08:57)
[2017-09-29] MEDS: FOLIC ACID 1 MG TAB PO (08:57)
[2017-09-29] MEDS: RIVAROXABAN 10 MG TAB (XARELTO) PO (08:58)
[2017-09-29] MEDS: NS 1,000 ML IV (16:20)
[2017-09-29 16:33] LABS: IMMEDIATE SPIN CROSSMATCH 1 2
[2017-09-29] MEDS: SENNA 8.6 MG TAB (SENOKOT) PO (20:28)
[2017-09-29] MEDS: ACETAMINOPHEN TAB 650MG DOSE (2X325MG) PO (22:24)
[2017-09-30] MEDS: LEVOTHYROXINE 50MCG TABLET (0.05MG) PO (05:41)
[2017-09-30] MEDS: PERCOCET 5MG/325MG TAB PO ×4 (05:42→22:03)
[2017-09-30 07:03] LABS: HEMATOCRIT 32.8 % (36.0-47.0); MEAN CORPUSCULAR HEMOGLOBIN 23.9 pg (27.0-33.0); MEAN CORPUSCULAR HGB CONC 31.4 g/dl (32.0-36.5); MEAN CORPUSCULAR VOLUME 76.1 fl (80.0-96.0); PLATELET COUNT, AUTOMATED 233 10^3/uL (150-450); RED BLOOD COUNT 4.31 10^6/uL (4.00-5.40); RED CELL DISTRIBUTION WIDTH 15.1 % (11.5-14.5); WHITE BLOOD COUNT 10.1 10^3/uL (4.0-10.0)
[2017-09-30 07:17] LABS: HEMOGLOBIN 10.3 g/dl (12.0-15.5)
[2017-09-30 07:29] LABS: ALBUMIN/GLOBULIN RATIO 0.88 (1.00-1.93); ALKALINE PHOSPHATASE 62 U/L (45-117); ALT/SGPT 20 U/L (12-78); ANION GAP 9 MEQ/L (8-16); AST/SGOT 21 U/L (7-37); BILIRUBIN,TOTAL 0.9 MG/DL (0.2-1.0); BLOOD UREA NITROGEN 13 MG/DL (7-18); CALCIUM LEVEL 8.6 MG/DL (8.8-10.2); CARBON DIOXIDE LEVEL 32 MEQ/L (21-32); CHLORIDE LEVEL 96 MEQ/L (98-107); CREATININE FOR GFR 0.67 MG/DL (0.55-1.30); GLOMERULAR FILTRATION RATE > 60.0 (>32); GLUCOSE, FASTING 100 MG/DL (70-100); POTASSIUM SERUM 3.8 MEQ/L (3.5-5.1); SODIUM LEVEL 137 MEQ/L (136-145); TOTAL PROTEIN 6.4 GM/DL (6.4-8.2)
[2017-09-30] MEDS: MIRALAX *UNIT DOSE* 17GM PACKET PO (09:00)
[2017-09-30] MEDS: MOM 30ML SUSPENSION UDC PO (09:00)
[2017-09-30] MEDS: FOLIC ACID 1 MG TAB PO (09:47)
[2017-09-30] MEDS: POTASSIUM CHLORIDE 10 MEQ SR TABLET PO (09:48)
[2017-09-30] MEDS: LORATADINE 10 MG TAB PO (09:48)
[2017-09-30] MEDS: FERROUS SULFATE 325MG TAB PO (09:48)
[2017-09-30] MEDS: SERTRALINE HCL 25 MG TABLET PO (09:48)
[2017-09-30] MEDS: RIVAROXABAN 10 MG TAB (XARELTO) PO (09:48)
[2017-09-30] MEDS: PANTOPRAZOLE 40MG TAB (PROTONIX) PO (09:48)
[2017-09-30] MEDS: DOCUSATE SODIUM 100 MG CAP PO ×2 (09:49→20:12)
[2017-09-30] MEDS: ACETAMINOPHEN TAB 650MG DOSE (2X325MG) PO ×2 (09:50→14:15)
[2017-09-30] MEDS: SENNA 8.6 MG TAB (SENOKOT) PO (20:12)
[2017-10-01] MEDS: LEVOTHYROXINE 50MCG TABLET (0.05MG) PO (05:30)
[2017-10-01] MEDS: PERCOCET 5MG/325MG TAB PO ×4 (07:13→20:34)
[2017-10-01] MEDS: DOCUSATE SODIUM 100 MG CAP PO ×2 (07:17→20:29)
[2017-10-01] MEDS: MOM 30ML SUSPENSION UDC PO (07:18)
[2017-10-01] MEDS: MIRALAX *UNIT DOSE* 17GM PACKET PO (07:19)
[2017-10-01] MEDS: FOLIC ACID 1 MG TAB PO (09:33)
[2017-10-01] MEDS: POTASSIUM CHLORIDE 10 MEQ SR TABLET PO (09:33)
[2017-10-01] MEDS: RIVAROXABAN 10 MG TAB (XARELTO) PO (09:33)
[2017-10-01] MEDS: FERROUS SULFATE 325MG TAB PO (09:34)
[2017-10-01] MEDS: PANTOPRAZOLE 40MG TAB (PROTONIX) PO (09:34)
[2017-10-01] MEDS: SERTRALINE HCL 25 MG TABLET PO (09:34)
[2017-10-01] MEDS: LORATADINE 10 MG TAB PO (09:34)
[2017-10-01] MEDS: SENNA 8.6 MG TAB (SENOKOT) PO (20:29)
[2017-10-02] MEDS: PERCOCET 5MG/325MG TAB PO ×5 (03:23→22:47)
[2017-10-02] MEDS: LEVOTHYROXINE 50MCG TABLET (0.05MG) PO (06:43)
[2017-10-02 06:51] LABS: BASO # 0.1 10^3/uL (0.0-0.2); BASO % 0.9 % (0.0-1.0); EOS # 0.3 10^3/uL (0.0-0.50); EOS % 3.2 % (0.0-3.0); HEMATOCRIT 26.6 % (36.0-47.0); HEMOGLOBIN 8.5 g/dl (12.0-15.5); IMMATURE GRANULOCYTE % 0.5 % (0-3.0); LYMPH # 1.5 10^3/uL (1.5-4.5); MEAN CORPUSCULAR HEMOGLOBIN 23.9 pg (27.0-33.0); MEAN CORPUSCULAR VOLUME 74.7 fl (80.0-96.0); MONO % 12.6 % (0.0-5.0); NEUTROPHILS # 5.1 10^3/uL (1.8-7.7); NEUTROPHILS % 63.8 % (36.0-66.0); PLATELET COUNT, AUTOMATED 275 10^3/uL (150-450); RED BLOOD COUNT 3.56 10^6/uL (4.00-5.40); RED CELL DISTRIBUTION WIDTH 14.9 % (11.5-14.5)
[2017-10-02 07:05] LABS: ANION GAP 7 MEQ/L (8-16); BLOOD UREA NITROGEN 12 MG/DL (7-18); CALCIUM LEVEL 8.3 MG/DL (8.8-10.2); CARBON DIOXIDE LEVEL 32 MEQ/L (21-32); CHLORIDE LEVEL 98 MEQ/L (98-107); CREATININE FOR GFR 0.61 MG/DL (0.55-1.30); GLOMERULAR FILTRATION RATE > 60.0 (>32); GLUCOSE, FASTING 102 MG/DL (70-100); POTASSIUM SERUM 3.6 MEQ/L (3.5-5.1); SODIUM LEVEL 137 MEQ/L (136-145)
[2017-10-02] MEDS: MOM 30ML SUSPENSION UDC PO (08:04)
[2017-10-02] MEDS: MIRALAX *UNIT DOSE* 17GM PACKET PO (08:05)
[2017-10-02] MEDS: DOCUSATE SODIUM 100 MG CAP PO ×2 (08:38→20:30)
[2017-10-02] MEDS: RIVAROXABAN 10 MG TAB (XARELTO) PO (08:38)
[2017-10-02] MEDS: LORATADINE 10 MG TAB PO (08:38)
[2017-10-02] MEDS: FOLIC ACID 1 MG TAB PO (08:38)
[2017-10-02] MEDS: PANTOPRAZOLE 40MG TAB (PROTONIX) PO (08:38)
[2017-10-02] MEDS: SERTRALINE HCL 25 MG TABLET PO (08:38)
[2017-10-02] MEDS: FERROUS SULFATE 325MG TAB PO (08:38)
[2017-10-02] MEDS: POTASSIUM CHLORIDE 10 MEQ SR TABLET PO (08:39)
[2017-10-02] MEDS: DICLOFENAC EPOLAMINE 1.3 % PATCH TOP ×2 (12:51→20:30)
[2017-10-02 14:12] LABS: HEMATOCRIT 26.7 % (36.0-47.0); HEMOGLOBIN 8.5 g/dl (12.0-15.5); MEAN CORPUSCULAR HEMOGLOBIN 23.9 pg (27.0-33.0); MEAN CORPUSCULAR HGB CONC 31.8 g/dl (32.0-36.5); MEAN CORPUSCULAR VOLUME 75.2 fl (80.0-96.0); PLATELET COUNT, AUTOMATED 278 10^3/uL (150-450); RED BLOOD COUNT 3.55 10^6/uL (4.00-5.40)
[2017-10-02] MEDS: SENNA 8.6 MG TAB (SENOKOT) PO (20:35)
[2017-10-03] MEDS: LEVOTHYROXINE 50MCG TABLET (0.05MG) PO (06:18)
[2017-10-03 06:19] LABS: BASO # 0.1 10^3/uL (0.0-0.2); BASO % 0.9 % (0.0-1.0); EOS # 0.3 10^3/uL (0.0-0.50); EOS % 4.6 % (0.0-3.0); HEMATOCRIT 26.9 % (36.0-47.0); HEMOGLOBIN 8.4 g/dl (12.0-15.5); IMMATURE GRANULOCYTE % 0.6 % (0-3.0); LYMPH # 1.6 10^3/uL (1.5-4.5); LYMPH % 23.8 % (24.0-44.0); MEAN CORPUSCULAR HEMOGLOBIN 23.9 pg (27.0-33.0); MEAN CORPUSCULAR HGB CONC 31.2 g/dl (32.0-36.5); MEAN CORPUSCULAR VOLUME 76.4 fl (80.0-96.0); MONO # 1.1 10^3/uL (0.0-0.8); MONO % 15.4 % (0.0-5.0); NEUTROPHILS # 3.7 10^3/uL (1.8-7.7); NEUTROPHILS % 54.7 % (36.0-66.0); PLATELET COUNT, AUTOMATED 278 10^3/uL (150-450); RED BLOOD COUNT 3.52 10^6/uL (4.00-5.40); RED CELL DISTRIBUTION WIDTH 15.1 % (11.5-14.5); WHITE BLOOD COUNT 6.8 10^3/uL (4.0-10.0)
[2017-10-03] MEDS: PERCOCET 5MG/325MG TAB PO ×4 (06:19→22:09)
[2017-10-03 06:46] LABS: ANION GAP 6 MEQ/L (8-16); BLOOD UREA NITROGEN 11 MG/DL (7-18); CALCIUM LEVEL 8.3 MG/DL (8.8-10.2); CARBON DIOXIDE LEVEL 32 MEQ/L (21-32); CHLORIDE LEVEL 98 MEQ/L (98-107); CREATININE FOR GFR 0.57 MG/DL (0.55-1.30); GLOMERULAR FILTRATION RATE > 60.0 (>32); GLUCOSE, FASTING 98 MG/DL (70-100); POTASSIUM SERUM 3.4 MEQ/L (3.5-5.1); SODIUM LEVEL 136 MEQ/L (136-145)
[2017-10-03] MEDS: DICLOFENAC EPOLAMINE 1.3 % PATCH TOP ×3 (09:00→09:59)
[2017-10-03] MEDS: DOCUSATE SODIUM 100 MG CAP PO ×2 (09:49→20:31)
[2017-10-03] MEDS: RIVAROXABAN 10 MG TAB (XARELTO) PO (09:49)
[2017-10-03] MEDS: MOM 30ML SUSPENSION UDC PO (09:49)
[2017-10-03] MEDS: PANTOPRAZOLE 40MG TAB (PROTONIX) PO (09:49)
[2017-10-03] MEDS: FOLIC ACID 1 MG TAB PO (09:49)
[2017-10-03] MEDS: SERTRALINE HCL 25 MG TABLET PO (09:49)
[2017-10-03] MEDS: POTASSIUM CHLORIDE 10 MEQ SR TABLET PO (09:49)
[2017-10-03] MEDS: FERROUS SULFATE 325MG TAB PO (09:49)
[2017-10-03] MEDS: LORATADINE 10 MG TAB PO (09:50)
[2017-10-03] MEDS: MIRALAX *UNIT DOSE* 17GM PACKET PO (09:50)
[2017-10-03] MEDS: ACETAMINOPHEN TAB 650MG DOSE (2X325MG) PO ×3 (11:40→20:32)
[2017-10-03] MEDS: LIDOCAINE 5% OINT 30 GM TOP ×3 (12:45→20:36)
[2017-10-03] MEDS: SALIVA SUBSTITUTE(MOUTHKOTE) BTL MT (12:46)
[2017-10-03] MEDS: SENNA 8.6 MG TAB (SENOKOT) PO (20:32)
[2017-10-04] MEDS: PERCOCET 5MG/325MG TAB PO ×4 (04:44→20:27)
[2017-10-04] MEDS: ACETAMINOPHEN TAB 650MG DOSE (2X325MG) PO ×3 (05:37→20:27)
[2017-10-04] MEDS: LEVOTHYROXINE 50MCG TABLET (0.05MG) PO (05:37)
[2017-10-04 06:39] LABS: BASO # 0.1 10^3/uL (0.0-0.2); BASO % 0.8 % (0.0-1.0); EOS # 0.2 10^3/uL (0.0-0.50); EOS % 3.2 % (0.0-3.0); HEMATOCRIT 26.3 % (36.0-47.0); HEMOGLOBIN 8.3 g/dl (12.0-15.5); IMMATURE GRANULOCYTE % 0.7 % (0-3.0); LYMPH % 14.4 % (24.0-44.0); MEAN CORPUSCULAR HEMOGLOBIN 23.9 pg (27.0-33.0); MEAN CORPUSCULAR HGB CONC 31.6 g/dl (32.0-36.5); MEAN CORPUSCULAR VOLUME 75.6 fl (80.0-96.0); MONO % 14.4 % (0.0-5.0); NEUTROPHILS # 4.8 10^3/uL (1.8-7.7); NEUTROPHILS % 66.5 % (36.0-66.0); PLATELET COUNT, AUTOMATED 297 10^3/uL (150-450); RED BLOOD COUNT 3.48 10^6/uL (4.00-5.40); RED CELL DISTRIBUTION WIDTH 15.1 % (11.5-14.5); WHITE BLOOD COUNT 7.2 10^3/uL (4.0-10.0)
[2017-10-04 06:53] LABS: ANION GAP 7 MEQ/L (8-16); BLOOD UREA NITROGEN 12 MG/DL (7-18); CALCIUM LEVEL 8.4 MG/DL (8.8-10.2); CARBON DIOXIDE LEVEL 32 MEQ/L (21-32); CHLORIDE LEVEL 98 MEQ/L (98-107); CREATININE FOR GFR 0.56 MG/DL (0.55-1.30); GLOMERULAR FILTRATION RATE > 60.0 (>32); GLUCOSE, FASTING 96 MG/DL (70-100); POTASSIUM SERUM 3.6 MEQ/L (3.5-5.1); SODIUM LEVEL 137 MEQ/L (136-145)
[2017-10-04] MEDS: DOCUSATE SODIUM 100 MG CAP PO ×2 (09:00→20:26)
[2017-10-04] MEDS: PANTOPRAZOLE 40MG TAB (PROTONIX) PO (09:10)
[2017-10-04] MEDS: POTASSIUM CHLORIDE 10 MEQ SR TABLET PO (09:11)
[2017-10-04] MEDS: FERROUS SULFATE 325MG TAB PO (09:11)
[2017-10-04] MEDS: FOLIC ACID 1 MG TAB PO (09:11)
[2017-10-04] MEDS: LORATADINE 10 MG TAB PO (09:12)
[2017-10-04] MEDS: RIVAROXABAN 10 MG TAB (XARELTO) PO (09:12)
[2017-10-04] MEDS: SERTRALINE HCL 25 MG TABLET PO (09:13)
[2017-10-04] MEDS: MOM 30ML SUSPENSION UDC PO (09:14)
[2017-10-04] MEDS: MIRALAX *UNIT DOSE* 17GM PACKET PO (09:14)
[2017-10-04] MEDS: LIDOCAINE 5% OINT 30 GM TOP ×3 (09:15→20:28)
[2017-10-04] MEDS: SENNA 8.6 MG TAB (SENOKOT) PO (20:26)
[2017-10-05] MEDS: ACETAMINOPHEN TAB 650MG DOSE (2X325MG) PO ×2 (05:14→11:15)
[2017-10-05] MEDS: LEVOTHYROXINE 50MCG TABLET (0.05MG) PO (05:15)
[2017-10-05 07:08] LABS: BASO % 0.6 % (0.0-1.0); EOS # 0.2 10^3/uL (0.0-0.50); EOS % 3.2 % (0.0-3.0); HEMATOCRIT 26.6 % (36.0-47.0); HEMOGLOBIN 8.4 g/dl (12.0-15.5); IMMATURE GRANULOCYTE % 0.6 % (0-3.0); LYMPH # 1.2 10^3/uL (1.5-4.5); LYMPH % 17.6 % (24.0-44.0); MEAN CORPUSCULAR HEMOGLOBIN 23.9 pg (27.0-33.0); MEAN CORPUSCULAR HGB CONC 31.6 g/dl (32.0-36.5); MEAN CORPUSCULAR VOLUME 75.6 fl (80.0-96.0); MONO # 1.1 10^3/uL (0.0-0.8); MONO % 16.2 % (0.0-5.0); NEUTROPHILS # 4.2 10^3/uL (1.8-7.7); NEUTROPHILS % 61.8 % (36.0-66.0); PLATELET COUNT, AUTOMATED 328 10^3/uL (150-450); RED BLOOD COUNT 3.52 10^6/uL (4.00-5.40); RED CELL DISTRIBUTION WIDTH 14.9 % (11.5-14.5); WHITE BLOOD COUNT 6.9 10^3/uL (4.0-10.0)
[2017-10-05 07:30] LABS: ANION GAP 10 MEQ/L (8-16); BLOOD UREA NITROGEN 11 MG/DL (7-18); CALCIUM LEVEL 8.3 MG/DL (8.8-10.2); CARBON DIOXIDE LEVEL 31 MEQ/L (21-32); CHLORIDE LEVEL 98 MEQ/L (98-107); GLOMERULAR FILTRATION RATE > 60.0 (>32); GLUCOSE, FASTING 94 MG/DL (70-100); POTASSIUM SERUM 3.8 MEQ/L (3.5-5.1); SODIUM LEVEL 139 MEQ/L (136-145)
[2017-10-05] MEDS: FERROUS SULFATE 325MG TAB PO (07:59)
[2017-10-05] MEDS: FOLIC ACID 1 MG TAB PO (07:59)
[2017-10-05] MEDS: PANTOPRAZOLE 40MG TAB (PROTONIX) PO (07:59)
[2017-10-05] MEDS: RIVAROXABAN 10 MG TAB (XARELTO) PO (08:00)
[2017-10-05] MEDS: DOCUSATE SODIUM 100 MG CAP PO (08:00)
[2017-10-05] MEDS: POTASSIUM CHLORIDE 10 MEQ SR TABLET PO (08:00)
[2017-10-05] MEDS: MOM 30ML SUSPENSION UDC PO (08:00)
[2017-10-05] MEDS: LORATADINE 10 MG TAB PO (08:00)
[2017-10-05] MEDS: SERTRALINE HCL 25 MG TABLET PO (08:00)
[2017-10-05] MEDS: MIRALAX *UNIT DOSE* 17GM PACKET PO (08:00)
[2017-10-05] MEDS: PERCOCET 5MG/325MG TAB PO (08:03)
[2017-10-05 08:13] LABS: KETONE, URINE AUTO RFX NEGATIVE (NEGATIVE); NITRITE, URINE AUTO RFX NEGATIVE (NEGATIVE); RBC, URINE AUTO RFX 11 /HPF (0-3); SPECIFIC GRAVITY UR AUTO RFX 1.009 (1.002-1.035); SQUAM EPITHELIAL CELL UR AURFX 0 /HPF (0-6); WBC, URINE AUTO RFX 1 /HPF (0-3)
[2017-10-05 08:15] LABS: LEUKOCYTE ESTERASE UR AUTO RFX TRACE (NEGATIVE)
[2017-10-05] MEDS: LIDOCAINE 5% OINT 30 GM TOP (09:00)
== END 2017-10-05 13:07 | disposition home health service (06) | DRG 560 ==
LOC: M PM&R 13:35
PROC: 30233N1 Transfusion of Nonautologous Red Blood Cells into Peripheral Vein, Percutaneous Approach (ICD-10-PCS; principal; 2017-09-29)
DX: Z47.1 Aftercare following joint replacement surgery (principal); E87.1 Hypo-osmolality and hyponatremia; D62 Acute posthemorrhagic anemia; E72.11 Homocystinuria; K21.9 Gastro-esophageal reflux disease without esophagitis; E03.9 Hypothyroidism, unspecified; E11.9 Type 2 diabetes mellitus without complications; J30.9 Allergic rhinitis, unspecified; I10 Essential (primary) hypertension; M48.061 Spinal stenosis, lumbar region without neurogenic claudication; E87.6 Hypokalemia; F32.9 Major depressive disorder, single episode, unspecified; Z79.899 Other long term (current) drug therapy; Z79.82 Long term (current) use of aspirin; Z88.0 Allergy status to penicillin; Z88.8 Allergy status to other drugs, medicaments and biological substances; Z96.653 Presence of artificial knee joint, bilateral; Z90.710 Acquired absence of both cervix and uterus; Z98.41 Cataract extraction status, right eye; Z98.42 Cataract extraction status, left eye; Z79.01 Long term (current) use of anticoagulants; Z88.5 Allergy status to narcotic agent; Z88.1 Allergy status to other antibiotic agents; Z90.722 Acquired absence of ovaries, bilateral

== ENCOUNTER → 2019-03-01 | Outpatient (REF) | payer MEDICARE ==
[~2019-03-01] MED LIST changes: +ASPI1CHW2 PO; +ASPI81TA26 PO; +Acetaminophen Tab PO; +BENA40TA5 PO; +BIOT1CAP2 PO; -BISACODYL 10 MG SUPP PR; -BISACODYL 5 MG TAB PO; +CALC600T57 PO; +COLA100C5 PO; +COUM2.5T17 PO; +Docusate Sod/Senna PO; -FLEET ENEMA PR; +FOLI1TAB11 PO; +GLUC1CAP10 PO; +IRON65TA PO; +KLOR10TA76 PO; +LEVO50TA5 PO; +LORA-753 PO; -MAALOX 30 ML SUSP *UDC PO; +MILK120011 PO; +MOUKOT60 MT; -NORCO, ANEXSIA 5/325MG TABLET (HYDROcodone/ACETAMINOPHEN) PO; +ONDA-83 PO; -ONDANSETRON 4 MG ORAL DISINTEGRATING TAB (Q0162 PER 1MG) PO; -ONDANSETRON 4MG/2ML VIAL (J2405) IM; +PEG1POW PO; +PERC5TAB12 PO; -PERCOCET 5MG/325MG TAB PO; +PERCOCET PO; +PROT1TAB2 PO; +SENN18TA PO; +SERT25TA85 PO; -SIMETHICONE 80 MG CHEW TAB PO; +TRIA37.5 PO; +TRIA37.53 PO; +XARE10TA PO
== END ==
LOC: M LAB LCGH 09:41
PROVIDERS: ATTEND Physician Assistant
DX: L57.0 Actinic keratosis (principal)